=== PATIENT | male | born 1945 | race African-American/Black ===

== ENCOUNTER 2017-06-30 16:59 | Emergency (ER) | payer MEDICARE ==
[~2017-06-30] VITALS: Ht 177.8 cm; Wt 110.0 kg
[2017-06-30 18:04] LABS: BASOPHILS % 0.9 % (0.0-2.0); EOSINOPHILS % 3.4 % (0.0-5.0); HEMATOCRIT. 41.9 % (42.0-52.0); HEMOGLOBIN. 13.8 g/dL (14.0-18.0); LYMPHOCYTES % 32.4 % (20.0-50.0); MEAN CORPUSCULAR HEMOGLOBIN 29.4 pg (28.0-32.0); MEAN CORPUSCULAR VOLUME 89.3 fL (80.0-94.0); MEAN PLATELET VOLUME 7.7 fl (7.4-10.4); MONOCYTES % 10.7 % (2.0-8.0); NEUTROPHILS % 52.6 % (40.0-76.0); PLATELET 189 x1000/uL (130-400); RED BLOOD CELL COUNT 4.69 mill/uL (4.7-6.1); RED CELL DISTRIBUTION WIDTH 14.4 % (11.6-14.6)
[2017-06-30 18:11] LABS: CHLORIDE 105 mEq/L (98-107)
[2017-06-30 21:21] VITALS: BP 120/75
== END 2017-06-30 21:22 | disposition home or self-care (01) ==
LOC: ER 17:45
DX: R55 Syncope and collapse (principal); I10 Essential (primary) hypertension; R42 Dizziness and giddiness
CPT/HCPCS: 36415; 80053; 84484; 85025; 93005; 99285; Z7610